=== PATIENT | male | born 1985 | race Caucasian/White ===

== ENCOUNTER 2019-09-16 14:56 | Inpatient (IN) | payer OTHER ==
[~2019-09-16] VITALS: Ht 180.3 cm; Wt 102.3 kg
[2019-09-16] MEDS ORDERED: LITHIUM CARBON300 MG PO (15:05)
--- NOTE | 2019-09-16 15:27 | NUR ---
XRAY IN ROOM WITH PT
[2019-09-16 16:07] LABS: BASOPHILS 0.1 % (0-2); EOSINOPHILS 0.5 % (0-7); HEMATOCRIT 44.8 % (42.0-54.0); HEMOGLOBIN 14.6 g/dL (13.5-17.5); IMMATURE GRANULOCYTES 0.4 % (0-5); MCH 29.3 pg (26.0-34.0); MCHC 32.6 g/dL (31.0-37.0); MCV 89.8 fL (80.0-100.0); MEAN PLATELET VOLUME 9.9 fL (7.4-10.4); MONOCYTES 4.4 % (2-11); NEUTROPHILS 86.6 % (40-80); PLATELET COUNT 256 10x3/uL (130-400); RBC 4.99 10x6/uL (4.20-6.10); RDW 12.9 % (11.5-14.5); WBC 15.5 10x3/uL (4.8-10.8)
[2019-09-16 16:17] LABS: INR 0.92 (0.85-1.17); PROTIME 12.3 SECONDS (11.6-15.0)
[2019-09-16 16:19] LABS: ANION GAP 11.6 mmol/L (8-16); CALCIUM 9.6 mg/dL (8.5-10.1); CARBON DIOXIDE 27.5 mmol/L (21.0-32.0); CREATININE - SERUM 1.4 mg/dL (0.6-1.3); POTASSIUM - SERUM 4.1 mmol/L (3.5-5.1)
[2019-09-16 16:27] LABS: ALBUMIN 4.5 g/dL (3.4-5.0); BILIRUBIN - TOTAL 0.99 mg/dL (0.2-1.3); PROTEIN - SERUM 7.6 g/dL (6.4-8.2)
[2019-09-16 16:42] LABS: APTT 19.6 SECONDS (22.8-39.4)
[2019-09-16 17:07] VITALS: BMI 31.4
[2019-09-16 19:52] VITALS: BP 130/66
--- NOTE | 2019-09-16 20:00 | NUR ---
UP IN BED WATCHING TV. NO COMPLAITNS VOICED A THIS TIME.SLING INTACT TO ANGELY. DRESSING INTACT WITHOUT DRAINAGE.. IV TO LAC INTACT WITHOUT REDNESS OR EDEMA NOTED. CL IN REACH
[2019-09-17] VITALS: BP 145/89
[2019-09-17 04:00] VITALS: BP 134/80
[2019-09-17 05:26] LABS: BASOPHILS 0.1 % (0-2); EOSINOPHILS 1.9 % (0-7); HEMOGLOBIN 13.5 g/dL (13.5-17.5); IMMATURE GRANULOCYTES 0.2 % (0-5); LYMPHOCYTES 22.6 % (15-50); MCH 28.5 pg (26.0-34.0); MCHC 31.4 g/dL (31.0-37.0); MCV 90.7 fL (80.0-100.0); MONOCYTES 8.1 % (2-11); NEUTROPHILS 67.1 % (40-80); PLATELET COUNT 240 10x3/uL (130-400); RBC 4.74 10x6/uL (4.20-6.10)
[2019-09-17 05:59] LABS: ANION GAP 9.5 mmol/L (8-16); CALCIUM 8.9 mg/dL (8.5-10.1); CREATININE - SERUM 1.3 mg/dL (0.6-1.3); POTASSIUM - SERUM 3.5 mmol/L (3.5-5.1)
[2019-09-17 06:38] LABS: INR 0.97 (0.85-1.17); PROTIME 12.9 SECONDS (11.6-15.0)
--- NOTE | 2019-09-17 07:43 | NUR ---
PT SITTING UP IN BED, SLING TO RT ELBOW, PT WAS BATHED THIS MORNING FOR POSSIBLE SURGERY. PT HAS BEEN NPO SINCE MIDNIGHT, IV IN LT AC NS AT 100, PT AWAITING DR THIS MORNING TO SEE PLANS FOR THE DAY, CL IN REACH BED IN LOWEST POSITION, ASSUME PT CARE
[2019-09-17 08:53] VITALS: BP 170/75
[2019-09-17 09:03] VITALS: Ht 180.3 cm; Wt 102.3 kg
[2019-09-17 11:33] VITALS: BP 150/91
--- NOTE | 2019-09-17 11:44 | NUR ---
RECEIVED PT BACK FROM SURGERY, PT IS AWAKE, ALERT AND ORIENTED, PT MOTHER CALLED WHILE HE WAS IN SURGERY SO HAD PT RETURN CALL, NO OTHER NEEDS AT THIS TIME, PT CL IN REACH CONTINUE WITH PLAN OF CARE
[2019-09-17 12:00] VITALS: BP 150/91
--- NOTE | 2019-09-17 14:41 | NUR ---
PT C/O ARM PAIN IN RT ARM, ELEVATED ARM WITH PILLOW UNDER PT ARM, ADMINISTERED PRN PAIN MEDICATION. NO OTHER NEEDS VOICED BY PT, CONTNUE WITH PLAN OF CARE
[2019-09-17] MEDS ORDERED: SMZ-TMP DS 800-1 TAB PO ×2 (16:03→16:05)
[2019-09-17] MEDS ORDERED: PERCOCET 10-321 EAC1 PO (16:03)
[2019-09-17 16:58] VITALS: BP 150/90
--- NOTE | 2019-09-17 18:28 | NUR ---
PT REQUESTED MORPHINE BEFORE DC, ADMINISTERED PRN PAION MEDICATION, DC IV AND PT WAS PICKED UP BY PARENTS AT ER ENTRANCE
--- NOTE | 2019-09-17 18:31 | MORECARE ---
CASE MANAGEMENT DISCHARGE SUMMARY PATIENT: ELIZABETH DE LA PAZ UNIT: [id number] ADM DATE: 09/16/19 AGE: 34 : 83 SEX: M ROOM/BED: D.2232 AUTHOR: KELLY HAN PHYSICIAN: REFERRING PHYSICIAN: ZAINAB GUERRERO MD DATE OF SERVICE: 09/17/19 Discharge Plan Patient Name: ELIZABETH DE LA PAZ Facility: [facility]:[place] : 1985 Planned Disposition: Home Anticipated Discharge Date: Discharge Date: 09/17/2019 Expected LOS: Initial Reviewer: [email or web address] Initial Review Date: 09/16/2019 Generated: 09/17/19 7:31 pm Patient Name: ELIZABETH DE LA PAZ Page 13956 at 1831 All edits/amendments must be made on the electronic document DICTATION DATE: 09/17/191830 JINGLE WRITER: ELYSIA 09/17/191830 RPT#: [id number] DC DATE:09/17/19 STATUS: DIS IN [facility] [address] [place] [address] END OF REPORT
--- NOTE | 2019-09-17 18:38 | MORECARE ---
CASE MANAGEMENT DISCHARGE SUMMARY PATIENT: ELIZABETH DE LA PAZ UNIT: [id number] ADM DATE: 09/16/19 AGE: 34 : 83 SEX: M ROOM/BED: D.2232 AUTHOR: KELLY HAN PHYSICIAN: REFERRING PHYSICIAN: ZAINAB GUERRERO MD DATE OF SERVICE: 09/17/19 Discharge Plan Patient Name: ELIZABETH DE LA PAZ Facility: [facility]:[place] : 1985 Planned Disposition: Home Anticipated Discharge Date: Discharge Date: 09/17/2019 Expected LOS: Initial Reviewer: [email or web address] Initial Review Date: 09/16/2019 Generated: 09/17/19 7:37 pm DCPIA - Discharge Planning Initial Assessment Updated by [email or web address]: Precious Cadena on 09/17/19 6:31 pm * Is the patient Alert and Oriented? Yes * How many steps to enter\exit or inside your home? * PCP [facility] * Pharmacy [facility] * Preadmission Environment Home with Family * ADLs Independent * Equipment None * List name and contact numbers for known caregivers / representatives who currently or will assist patient after discharge: SHWETHA MCCURDY -[phone] * Verbal permission to speak to the caregivers and representatives has been obtained from the patient. N/A * Community resources currently utilized None * Additional services required to return to the preadmission environment? No * Can the patient safely return to the preadmission environment? Yes * Has this patient been hospitalized within the prior 30 days at any hospital? No Last DP export: 09/17/19 5:31 pm Patient Name: ELIZABETH DE LA PAZ Page 51225 at 1838 All edits/amendments must be made on the electronic document DICTATION DATE: 09/17/191836 WEIGHT SHIFTER: ELYSIA 09/17/191836 RPT#: [id number] DC DATE:09/17/19 STATUS: DIS IN [facility] [address] [place] [address] END OF REPORT
--- NOTE | 2019-09-17 18:44 | MORECARE ---
CASE MANAGEMENT DISCHARGE SUMMARY PATIENT: ELIZABETH DE LA PAZ UNIT: [id number] ADM DATE: 09/16/19 AGE: 34 : 83 SEX: M ROOM/BED: D.2232 AUTHOR: GUILLE,DOC PHYSICIAN: REFERRING PHYSICIAN: ZAINAB GUERRERO MD DATE OF SERVICE: 09/17/19 Discharge Plan Patient Name: ELIZABETH DE LA PAZ Facility: [facility]:[place] : 1985 Planned Disposition: Home Anticipated Discharge Date: Discharge Date: 09/17/2019 Expected LOS: Initial Reviewer: [email or web address] Initial Review Date: 09/16/2019 Generated: 09/17/19 7:43 pm Comments DCP- Discharge Planning Updated by [email or web address]: Precious Cadena on 09/17/19 5:[address] Patient Name: ELIZABETH DE LA PAZ Admission Status: ER Accout number: [id number] Admission Date: 09-16-2019 : 1985 Admission Diagnosis: Attending: ZAINAB GUERRERO Current LOS: 1 Anticipated DC Date: Planned Disposition: Home Primary Insurance: [facility] Discharge Planning Comments: CM met with patient to complete initial dc planning assessment. CM educated patient on the CM role and verbal consent given by patient to complete assessment. Patient lives at home with family. At discharge patient plans to return home and feels this is a safe discharge. CM discussed availability of home health, rehab services, and medical equipment. Patient denied known discharge needs at this time. CM will continue to follow and will assist as needed with dc plans/needs. Sailmaker: Precious Cadena DCPIA - Discharge Planning Initial Assessment Updated by [email or web address]: Precious Cadena on 09/17/19 6:31 pm * Is the patient Alert and Oriented? Yes * How many steps to enter\exit or inside your home? * PCP [facility] * Pharmacy [facility] * Preadmission Environment Home with Family * ADLs Independent * Equipment None * List name and contact numbers for known caregivers / representatives who currently or will assist patient after discharge: SHWETHA MCCURDY -[phone] * Verbal permission to speak to the caregivers and representatives has been obtained from the patient. N/A * Community resources currently utilized None * Additional services required to return to the preadmission environment? No * Can the patient safely return to the preadmission environment? Yes * Has this patient been hospitalized within the prior 30 days at any hospital? No Last DP export: 09/17/19 5:38 pm Patient Name: ELIZABETH DE LA PAZ Page 40583 at 1844 All edits/amendments must be made on the electronic document DICTATION DATE: 09/17/191843 LUNCH TRUCK OPERATOR: ELYSIA 09/17/191843 RPT#: [id number] DC DATE:09/17/19 STATUS: DIS IN [facility] [address] [place] [address] END OF REPORT
--- NOTE | 2019-09-19 06:43 | OP ---
PATIENT NAME: ELIZABETH DE LA PAZ MEDICAL RECORD: [id number] :[birth year] LOCATION:D.MS [address] ADMISSION DATE:09/16/19 SURGEON: ZAINAB GUERRERO MD DATE OF OPERATION: 09/17/2019 PREOPERATIVE DIAGNOSIS: Right olecranon fracture. POSTOPERATIVE DIAGNOSIS: Right olecranon fracture. PROCEDURE: Open reduction and internal fixation of right olecranon fracture. SURGEON: Zainab Guerrero MD SCRIPT COORDINATOR: AIDA Cole ANESTHESIA: General. INTRAOPERATIVE COMPLICATIONS: None. SUMMARY OF PATHOLOGIC FINDINGS: The patient had an olecranon tip fracture consistent with the radiographs as seen. OPERATIVE SUMMARY IN DETAIL: After obtaining the appropriate preoperative orthopedic surgery consent as well as anesthetic consultation, evaluation and clearance, the patient was brought to the operating room and placed on the operating table in supine position. After adequate general laryngeal mask airway was administered, tourniquet was placed on the proximal aspect or the right upper extremity. Right upper extremity was then prepped and draped in routine sterile fashion. Incision was made about the patient's previously small laceration. This was taken down to the level of the fracture itself. The fracture was exposed in its entirety. All interposed fracture hematoma was removed with curettage, lavage as well as rongeur. Having completed this, reduction maneuver was performed, placing the olecranon tip back into the anatomic place. This was then provisionally pinned with K wires for both a 5.0 and 4.0 compression screws. Compression screws were then placed under fluoroscopic guidance resulting in anatomic realignment. At this point, #0 FiberWire was then utilized to reapproximate the edges of the triceps back to the periosteum of the distal aspect of the ulna. Having completed this, the wound was then closed with #1 Vicryl, 2-0 Vicryl and 3-0 Prolene by AIDA Cole. Sterile dressings were applied. Tourniquet was deflated. Posterior splint was applied. The patient was awakened, taken to the recovery room in stable condition. All final needle and sponge counts were correct. TRANSINT:[id number] Voice Confirmation ID: [id number] DOCUMENT ID: [id number] ZAINAB GUERRERO MD at 0643 CC: [id number] DICTATION DATE: 09/18/19 1158 UNDER PRESSER: 09/18/19 1319 DIS IN 09/17/19 [facility] [address] [place] [id number]
== END 2019-09-17 18:29 | disposition home or self-care (01) | DRG 512 ==
LOC: D.ER 14:56 → D.MS 16:08
PROVIDERS: Family Medicine; ADMIT Orthopaedic Surgery; ATTEND Orthopaedic Surgery
PROC: 0PSK04Z Reposition Right Ulna with Internal Fixation Device, Open Approach (ICD-10-PCS; principal; 2019-09-16)
DX: S52.021A Displaced fracture of olecranon process without intraarticular extension of right ulna, initial encounter for closed fracture (principal); V19.9XXA Pedal cyclist (driver) (passenger) injured in unspecified traffic accident, initial encounter